=== PATIENT | female | born 1995 | race American Indian/Alaskan Native ===

== ENCOUNTER 2018-12-11 20:27 | Emergency (ER) | payer SELFPAY | END 2018-12-11 21:00 | disposition left against medical advice (07) | LOC: ED 20:27 | DX: T78.40XA Allergy, unspecified, initial encounter (principal); X58.XXXA Exposure to other specified factors, initial encounter; Z53.21 Procedure and treatment not carried out due to patient leaving prior to being seen by health care provider ==

== ENCOUNTER 2019-01-22 00:01 | Emergency (ER) | payer SELFPAY ==
[2019-01-22] MEDS ORDERED: PEPCID IV ONE (00:17)
[2019-01-22] MEDS ORDERED: NACL 0.9% 1000 ML 1,000 ML IV ONE (00:17)
[2019-01-22] MEDS ORDERED: BENADRYL IV ONE (00:18)
[2019-01-22] MEDS ORDERED: ADRENALINE P/F SUB-Q ONE (00:18)
[2019-01-22] MEDS ORDERED: SOLU-Medrol IV ONE ×2 (00:18)
[2019-01-22] MEDS ORDERED: PROVENTIL IH ONE (00:24)
[2019-01-22] MEDS ORDERED: ATROVENT IH ONE (00:25)
--- NOTE | 2019-01-22 00:29 | Emergency Department Report ---
HPI - General Chief Complaint: Allergic Reaction Time Seen by Provider: 01/22/19 00:17 - HPI HPI: 23-year-old -[place] female presents to the emergency department with complaint of an allergic reaction. She is having some shortness of breath, itch ing, redness scan, and feels like her throat is swelling. This started just prior to arrival. 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 She did not take anything for her symptoms prior to arrival. No other past medical history. No recent travel. No primary care physician. ED Past Medical Hx - Medications Home Medications: Home Medications Medication Instructions Recorded Confirmed Last Taken Type EPINEPHrine [Epipen 2-Hill] 0.3 mg IJ ONCE PRN #1 auto.injct 01/22/19 Unknown Rx Famotidine [Pepcid] 20 mg PO BID #6 tablet 01/22/19 Unknown Rx diphenhydrAMINE [Benadryl CAP] 25 mg PO Q8HR PRN #9 capsule 01/22/19 Unknown Rx predniSONE [Deltasone] 20 mg PO BID #6 tab 01/22/19 Unknown Rx ED Review of Systems ROS: Stated complaint: ALLERGIC REACTION Other details as noted in HPI Comment: All other systems reviewed and negative Constitutional: denies: chills, fever Eyes: denies: eye pain, vision change ENT: throat pain. denies: ear pain Respiratory: shortness of breath. denies: cough Cardiovascular: denies: palpitations, edema Gastrointestinal: denies: abdominal pain, vomiting Musculoskeletal: denies: joint swelling, myalgia Skin: change in color, pruritus Neurological: denies: headache, weakness Physical Exam - Physical Exam Vital Signs: Vital Signs 01/22/19 00:06 Pulse Rate 119 H Respiratory 14 Rate O2 Sat by Pulse 96 Oximetry Physical Exam: GENERAL: The patient is well-developed well-nourished. HENT: Normocephalic. Atraumatic. Patient has moist mucous membranes. No drooling or trismus. There is some tonsillar hypertrophy but no erythema or exudates. EYES: Extraocular motions are intact. Pupils equal reactive to light bilaterally. NECK: Supple. Trachea is midline. CHEST/LUNGS: Clear to auscultation. No tachypnea or accessory muscle use. There is no respiratory distress noted. HEART/CARDIOVASCULAR: Regular. There is mild tachycardia. There is no murmur. ABDOMEN: Abdomen is soft, nontender. Patient has normal bowel sounds. There is no abdominal distention. SKIN: There is some urticaria and some erythema seen to the bilateral upper extremities. NEURO: The patient is awake, alert, and oriented. The patient is cooperative. The patient has no focal neurologic deficits. Normal speech. MUSCULOSKELETAL: There is no tenderness or deformity. There is no evidence of acute injury. ED Course Vital Signs 01/22/19 00:06 Pulse Rate 119 H Respiratory 14 Rate O2 Sat by Pulse 96 Oximetry ED Medical Decision Making - Lab Data Result diagrams: 01/22/19 00:24 01/22/19 00:24 - Medical Decision Making This patient presents with what appears to be an allergic reaction. She has the complaint of some symptoms of throat irritation and inflammation, chest tightness, shortness of breath. She does have some urticaria and erythema to the bilateral upper extremity's. An IV was placed and the patient was started on some IV fluid resuscitation. She was given Solu-Medrol, Pepcid, Benadryl and epinephrine. Patient's labs have been unremarkable. Chest x-ray did not show any pneumonia, pneumothorax, focal consolidation, pleural effusions, or any other acute process. Patient says she is feeling improved and asking for discharge home. I explained to the patient of the importance of monitoring her given the symptoms of angioedema and/or anaphylaxis. However the patient is adamant about going home. She understands that there could be rebound symptoms causing respiratory distress or even . She is awake, alert, oriented and has a normal decision making capacity. The patient has decided to sign out AGAINST MEDICAL ADVICE. However she has still been given some discharge instructions and prescriptions. She has been instructed to return to the emergency department if she changes her mind about further monitoring, has any return or worsening of her symptoms, or has any acute distress. - Differential Diagnosis angioedema, anaphylaxis, dermatitis, strep pharyngitis Critical Care Time: No Critical care attestation.: If time is entered above; I have spent that time in minutes in the direct care of this critically ill patient, excluding procedure time. ED Disposition Clinical Impression: Throat discomfort, Chest tightness Allergic reaction Qualifiers: Encounter type: initial encounter Qualified Code(s): T78.40XA - Allergy, unspecified, initial encounter Disposition: DC-07 LEFT AGAINST MED ADVICE Is pt being admited?: No Condition: Stable Instructions: Food Allergy (ED), Anaphylaxis (ED) Additional Instructions: Please return to the emergency department if you change your mind about being monitored, or with any return or worsening of your symptoms, or with any acute distress. You have been prescribed an EpiPen to use if you have a severe allergic reaction causing throat closing, shortness of breath, chest pain or signs of anaphylaxis. If you have to use the EpiPen, call 911 or make sure you get to the emergency department immediately afterwards. Prescriptions: diphenhydrAMINE [Benadryl CAP] 25 mg PO Q8HR PRN #9 capsule PRN Reason: Allergic Reaction predniSONE [Deltasone] 20 mg PO BID #6 tab EPINEPHrine [Epipen 2-Hill] 0.3 mg IJ ONCE PRN #1 auto.injct PRN Reason: Anaphylaxis Famotidine [Pepcid] 20 mg PO BID #6 tablet [facility] - [facility]3 Days ARIAS NOLAN MD [Staff Physician] - 2-3 Days Forms: AMA Form Time of Disposition: 04:02
[2019-01-22 00:47] LABS: Basophils % (Auto) 0.6 % (0.0-1.8); Eosinophils # (Auto) 0.3 K/mm3 (0.0-0.4); Eosinophils % (Auto) 4.8 % (0.0-4.3); Hematocrit 34.8 % (30.3-42.9); Hemoglobin 11.8 gm/dl (10.1-14.3); Lymphocytes # (Auto) 2.6 K/mm3 (1.2-5.4); Lymphocytes % (Auto) 42.7 % (13.4-35.0); Mean Corpuscular HGB Conc 34 % (30-34); Mean Corpuscular Volume 78 fl (79-97); Monocytes # (Auto) 0.4 K/mm3 (0.0-0.8); Platelet Count 289 K/mm3 (140-440); Red Blood Count 4.45 M/mm3 (3.65-5.03)
[2019-01-22 00:58] LABS: BUN/Creatinine Ratio 19; Blood Urea Nitrogen 13 mg/dL (7-17); Calcium 8.8 mg/dL (8.4-10.2); Hemolysis Index 3
[2019-01-22 01:54] VITALS: BP 116/53
--- NOTE | 2019-01-22 01:55 | XRay Report ---
CHEST 1 VIEW INDICATION / CLINICAL INFORMATION: SOB. COMPARISON: None available. FINDINGS: SUPPORT DEVICES: None. HEART / MEDIASTINUM: No significant abnormality. LUNGS / PLEURA: No significant pulmonary or pleural abnormality. No pneumothorax. ADDITIONAL FINDINGS: No significant additional findings. IMPRESSION: 1. No acute findings. Signer Name: Glen Osorio MD Signed: 01/22/2019 1:51 AM Workstation Name: [id number]
== END 2019-01-22 02:04 | disposition left against medical advice (07) ==
LOC: ED 00:01
DX: T78.40XA Allergy, unspecified, initial encounter (principal); Z91.018 Allergy to other foods; X58.XXXA Exposure to other specified factors, initial encounter
CPT/HCPCS: 36415; 71045; 80048; 85025; 94640; 96372; 96374; 96375; 99284; J0171; J1200; J2930; J7030; 94644